=== PATIENT | female | born 1935 | race Caucasian/White ===

== ENCOUNTER 2017-06-13 16:24 | Emergency (ER) | payer MEDICARE, BC ==
[2017-06-13 16:25] VITALS: BP 156/95
[2017-06-13] MEDS ORDERED: IV NORMAL SALINE 1,000ML 1,000 ML ONE (16:36)
[2017-06-13] MEDS ORDERED: fentaNYL PF 100 MCG/2 ML VIAL ONE (16:44)
[2017-06-13] MEDS ORDERED: IV NORMAL SALINE 1,000ML 1,000 ML IV ONE (16:45)
[2017-06-13] MEDS ORDERED: DIPH,PERTUSS(ACELL),TET PED/PF 0.5 ML VIAL VAX IM ONE (16:45)
[2017-06-13] MEDS: fentaNYL PF 100 MCG/2 ML VIAL IV PRN ×3 (16:50→18:00)
[2017-06-13] MEDS ORDERED: DIPHTH,PERTUSS(ACELL),TET TOX 0.5 ML DISP.SYRIN. VAX IM ONE (17:00)
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
== END 2017-06-13 18:25 | disposition home or self-care (01) ==
LOC: ER 16:24
DX: T23.232A Burn of second degree of multiple left fingers (nail), not including thumb, initial encounter (principal); T23.231A Burn of second degree of multiple right fingers (nail), not including thumb, initial encounter; T24.102A Burn of first degree of unspecified site of left lower limb, except ankle and foot, initial encounter; T24.101A Burn of first degree of unspecified site of right lower limb, except ankle and foot, initial encounter; T20.17XA Burn of first degree of neck, initial encounter; T20.10XA Burn of first degree of head, face, and neck, unspecified site, initial encounter; E78.00 Pure hypercholesterolemia, unspecified; X08.8XXA Exposure to other specified smoke, fire and flames, initial encounter; Y93.89 Activity, other specified; Y92.89 Other specified places as the place of occurrence of the external cause; Y99.8 Other external cause status
CPT/HCPCS: 10140; 90471; 90715; 96361; 96374; 96376; 99284; J3010; J7030

== ENCOUNTER 2019-12-10 08:37 | Emergency (ER) | payer MEDICARE, BC ==
[2019-12-10 08:49] VITALS: BP 160/79
--- NOTE | 2019-12-10 09:37 | RAD ---
CT MAXILLOFACIAL WO CONTRAST, CT HEAD WO CONTRAST Date: 12/10/2019 8:54 AM Clinical Indication: Trauma, pain Comparison: None. Technique: Axial computed tomographic images were obtained of the head and maxillofacial structures without contrast. Multiplanar reconstructions were performed. One or more of the following dose reduction techniques were utilized: Automated exposure control (AEC), Adjustment of mA and/or kV according to patient size, Use of iterative reconstruction technique such as ASiR, CT scan done according to ALARA and image gently/image wisely CT HEAD FINDINGS: Mild generalized cerebral and cerebellar volume loss. Mild nonspecific periventricular hypoattenuation, most commonly seen with chronic small vessel ischemic disease. No intra- or extra-axial mass or fluid collection. No acute hemorrhage. The ventricles are normal in size, shape, and morphology. The larson-white matter junction is normal. The basilar cisterns are patent. The mastoid air cells are clear. No aggressive osseous lesion or fracture. CT FACE FINDINGS: There is no acute facial bone fracture. The paranasal sinuses are clear. Nasal septum is deviated to the right. The orbits are normal. The globes are intact. Impression: 1. No acute intracranial process. 2. No acute facial bone fracture. Electronically signed by: Ralph Monreal MD (12/10/2019 9:34 AM) [facility]
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
== END 2019-12-10 10:00 | disposition home or self-care (01) ==
LOC: ER 08:37
DX: S00.83XA Contusion of other part of head, initial encounter (principal); M19.90 Unspecified osteoarthritis, unspecified site; W18.39XA Other fall on same level, initial encounter; Y93.89 Activity, other specified; Y92.89 Other specified places as the place of occurrence of the external cause; Y99.8 Other external cause status
CPT/HCPCS: 70450; 70486; 99284-25